=== PATIENT | female | born 1975 | race Caucasian/White ===

== ENCOUNTER 2018-01-23 08:50 | Inpatient (IN) ==
--- OUTSIDE RECORDS SUMMARY | 2018-01-23 09:03 | External Medical Summary | Continuity of Care Document ---
:1975 Author Organization [facility] Address [address] [place], [place] [id number] Phone Allergies, Adverse Reactions, Alerts Substance Reaction Severity Status No Known Drug Allergies Unknown Active Medications Medication Instructions Dosage Effective Dates Status Comments (start - stop) (unknown take 1 tablet by oral - Active strength) route every day Problems Condition Effective Dates (start - stop) Clinical Status Follow-Up, Routine - Supervision of elderly multigravida, - third trimester 31 weeks gestation of - Supervision of elderly multigravida, - first trimester 12 weeks gestation of - Supervision of elderly multigravida, - second trimester 16 weeks gestation of - Supervision of elderly multigravida, - second trimester 20 weeks gestation of - Supervision of elderly multigravida, - second trimester 25 weeks gestation of - Supervision of elderly multigravida, - second trimester 20 weeks gestation of - Supervision of elderly multigravida, - third trimester 29 weeks gestation of - Supervision of elderly multigravida, - third trimester 33 weeks gestation of - Uterine Fibroids Active Active Procedures Procedure Date OB Visit No Charge Results Test Name Date and Time Measure Units Reference Range Abnormal Flag Comments Unknown Advance Directives Directive Yes / No Effective Date File Name Unknown Encounters Encounter Practice Location Reason(s) Diagnoses Date Provider Care Team Description For Visit Members Fior Wing Supervision Jared- Stoney Referring In Womens of elderly 4-201 [place]. 700 Provider: Health ABHIJIT, multigravida, 8 Medical [place] [address], third [place], [id number] Jimmy Stearns [id number], weeks 120, Medical gestation of [facility] tel: [place], Jimmy 120, [id number] [facility]. [place], tel:[phone]. [id number] tel:[phone] Fior Wing Supervision November-3 Stoney Referring In Womens of elderly 0-201 [place]. 700 Provider: Health ABHIJIT, multigravida, 8 Medical [place] [address], third [place], [id number] Jimmy Stearns , weeks 120, Medical gestation of [facility] tel: [place], Jimmy 120, [id number] [facility]. [place], tel:[phone]. [id number] tel:[phone] Fior Wing Supervision Stoney Referring In Womens of elderly 5-201 [place]. 700 Provider: bharath Marrufogravida, 8 Medical [place] [address], third [place], [id number] Jimmy Stearns [id number], weeks 120, Medical gestation of [facility] tel: [place], Jimmy 120, [id number] [facility]. [place], tel: [phone]. [id number] tel:[phone] Fior Wing Supervision Oct-1 Stoney Referring In Womens of elderly 7-201 [place]. 700 Provider: bharath Marrufogravida, 8 Medical [place] [address], second [place], [id number] Jimmy Stearns [id number], weeks 120, Medical gestation of [facility] tel: [place], Jimmy 120, [id number] [facility]. [place], tel: [phone]. [id number] tel:[phone] Fior Wing Supervision Stoney Referring In Womens of elderly 5-201 [place]. 700 Provider: Health ABHIJIT multigravida, 8 Medical [place] [address], second [place], [id number] Jimmy Stearns [id number], weeks 120, Medical gestation of [facility] tel: [place], Jimmy 120, [address] [id number] [facility] , . [place], tel: [phone]. [id number] tel:[phone] Fior Wing Supervision Sep- Stoney Referring In Womens Ultrasound of elderly 5-201 [place]. 700 Provider: bharath Marrufogravida, 8 Medical [place] [address], second [place], [id number] Jimmy Stearns [id number], weeks 120, Medical US gestation of [facility] tel: [place], Jimmy 120, [address] [phone] [facility] , . [place], tel:[phone]. [id number] tel:[phone] Fior Wing Supervision Stoney Referring In Womens of elderly 5-201 [place]. 700 Provider: homero Marrufoavialesha, 8 Medical [place] [address], second [place], [id number] Jimmy Stearns [id number], weeks 120, Medical gestation of [facility] tel: [place], Jimmy 120, [id number] [facility]. [place], tel: [phone]. [id number] tel:[phone] Fior Wing Supervision Stoney Referring In Womens of elderly 8-201 [place]. 700 Provider: bharath Marrufogravida, 8 Medical [place] [address], first [place], [id number] Jimmy Stearns [id number], weeks 120, Medical US gestation of [facility] tel: [place], Jimmy 120, [id number] [facility]. [place], tel: [phone]. [id number] tel:[phone] Fior Wing Nick-0 Stoney In Womens Follow-Up, 7-201 [place]. 700 Health [place], Routine 6 Medical [address], [place] ANMOL Siddiqui, , Jimmy [id number], 120, Wing, tel:+21 [place], [phone] [id number] , . tel: [phone] Fior Wing Oct-2 Stoney Referring In Womens 0-201 [place]. 700 Provider: Health ABHIJIT, 5 Medical [place] [address], [place], , Jimmy [facility] , 120, Medical [facility] tel:+21 [place], Jimmy 120, [id number] [facility]. [place], tel: [phone]. [id number] tel:[phone] Fior Wing Oct-0 Stoney Referring In Womens 6-201 [place]. 700 Provider: Health ABHIJIT, 5 Medical [place] [address], [place], Dr, [place] [id number] , 120, [facility] tel: [place], Jimmy 120, [address] [phone] [facility] [place], tel: [phone]. [id number] tel:[phone] Fior Wing Yo-1 Stoney In Womens 0-201 [place]. 700 Health ABHIJIT, 3 Medical [address], [place] ANMOL Siddiqui, , [facility] , 120, Maciej, tel:+21 [place], [address] [phone] , . tel: [phone] Fior Wing Apr-1 Stoney In Womens 8-201 [place]. 700 Health PA, 3 Medical [address], [place] ANMOL Siddiqui, , Jimmy [id number], 120, Maciej, tel:+21 [place], [address] [phone] , . tel: [phone] Family History Family Member Diagnosis Age At Onset No family history of Kidney Problems Maternal Grandmother Diabetes mellitus No family history of Breast Cancer No family history of Cardiovascular Disease No family history of Hypertension No family history of Ovarian Cancer No family history of Thyroid Disorder No family history of Colon Cancer No family history of Lung Disease No family history of Osteoporosis Paternal Grandfather Stroke No family history of Epilepsy Immunizations Vaccine Date Status Comments Tdap completed Source: New Immunization Record Influenza, seasonal, injectable, completed Source: New Immunization Record preservative free, 3 yrs or older Payers Payer name Insurance type Covered green party ID Authorization(s) [facility] Aid CI [id number] [facility] CI [id number] [facility] CI [id number] Social History Type Description Quantity Date Captured Alcohol Use Details No Caffeine Use Details Unknown Tobacco Use Status Unknown Smoking Status Never smoker Vital Signs Date / Height Weight BMI Pulse Blood Temperature Respiratory Body Head BMI Time: Rate Pressure Rate Surface Circumference percentile Area 211.10 36.2 / lbs 3 mm[Hg] 9:24 kg/m AM amarjit (2) Chief Complaint And Reason For Visit Unknown Chief Complaint And Reason For Visit Reason For Referral Reason For Referral Unknown Plan Of Care Date Type Action Status Appointment Melissa Olmstead BOOKED Appointment Melissa Olmstead BOOKED Future Order: Lab Order Pap Smear With HPV Reflex If ASCUS Ordered ([id number]), Collected on: Date Type Problem Goal Intervention Status Start Date Unknown. History Of Present Illness Encounter Date Complaint History Of Present Illness This patient has no known history of present illness Functional Status Encounter Date Functional Assessment Cognitive Assessment Unknown Medications Administered Medication Instructions Dosage Effective Dates (start - stop) Status Comments Drug Treatment Unknown Instructions Date Instruction Additional Information Unknown
--- OUTSIDE RECORDS SUMMARY | 2018-01-23 09:03 | External Medical Summary | Continuity of Care Document ---
:1975 Author Organization [facility] Address [address] [place], [place] [id number] Phone Allergies, Adverse Reactions, Alerts Substance Reaction Severity Status No Known Drug Allergies Unknown Active Medications Medication Instructions Dosage Effective Dates Status Comments (start - stop) (unknown take 1 tablet by oral - Active strength) route every day Problems Condition Effective Dates (start - stop) Clinical Status Follow-Up, Routine - Supervision of elderly multigravida, - second trimester 25 weeks gestation of - Supervision of elderly multigravida, - first trimester 12 weeks gestation of - Supervision of elderly multigravida, - second trimester 16 weeks gestation of - Supervision of elderly multigravida, - second trimester 20 weeks gestation of - Supervision of elderly multigravida, - second trimester 20 weeks gestation of - Uterine Fibroids Active Active Procedures Procedure Date OB Visit No Charge Results Test Name Date and Time Measure Units Reference Range Abnormal Flag Comments Unknown Advance Directives Directive Yes / No Effective Date File Name Unknown Encounters Encounter Practice Location Reason(s) Diagnoses Date Provider Care Team Description For Visit Members Associates Maciej Supervision Stoney Referring In Womens of elderly 7-201 [place]. 700 Provider: sheila Marrufo, 8 [facility] [address], [facility] [place], [id number] Jimmy Stearns 700 [id number], weeks 120, Medical US gestation of [facility] tel: [place], Jimmy 120, [address] [id number] [facility]. [place], tel: [phone]. [id number] tel:[phone] Fior Wing Supervision Stoney Referring In Womens of elderly [place]. 700 Provider: bharath Marrufogravida, 8 Medical [place] [address], second [place], [id number] Jimmy Stearns [id number], weeks 120, Medical US gestation of [address] tel: [place], Jimmy 120, [address] [id number] [facility]. [place], tel: [phone]. [id number] tel:[phone] Fior Wing Supervision Stoney Referring In Womens Ultrasound of elderly [place]. 700 Provider: bharath Marrufogravialesha, 8 Medical [place] [address], second [place], [id number] Jimmy Stearns [id number], weeks 120, Medical US gestation of [address] tel: [place], Jimmy 120, [address] [id number] [facility]. [place], tel: [phone]. [id number] tel:[phone] Fior Wing Supervision Stoney Referring In Womens of elderly [place]. 700 Provider: homero Marrufoavialesha, 8 Medical [place] [address], second [place], [id number] Jimmy Stearns [id number], weeks 120, Medical US gestation of [address] tel: [place], Jimmy 120, [address] [id number] [facility]. [place], tel: [phone]. [id number] tel:[phone] Fior Wing Supervision Stoney Referring In Womens of elderly - [place]. 700 Provider: bharath Marrufogravida, 8 Medical [place] [address], first Center [place], [id number] Jimmy Stearns [id number], weeks 120, Medical US gestation of [address] tel: [place], Jimmy 120, [address] [id number] Wing, [facility]. [place], tel: [phone]. [id number] tel:[phone] Fior Wing Nick-0 Stoney In Womens Follow-Up, 7-201 [place]. 700 Health PA, Routine 6 Medical [address], [place] ANMOL Siddiqui, , Jimmy [id number], 120, Wing, tel:+21 [place], [address] [phone] , . tel: [phone] Fior Wing Oct-2 Stoney Referring In Womens 0-201 [place]. 700 Provider: Health ABHIJIT, 5 Medical [place] [address], [place] St[place], , Jimmy 700 [id number], 120, [facility] tel:+21 [place], Jimmy 120, 236[address] [id number] [facility]. [place], tel: [phone]. [id number] tel:[phone] Fior Wing Oct-0 Stoney Referring In Womens 6-201 [place]. 700 Provider: Health ABHIJIT, 5 Medical [place] [address], [place], , Jimmy 700 , 120, [facility] tel:+21 [place], Jimmy 120, [address] [id number] [facility]. [place], tel: [phone]. [id number] tel:[phone] Fior Wing Yo-1 Stoney In Womens 0-201 [place]. 700 Health ABHIJIT, 3 Medical [address], [place] ANMOL Siddiqui, , Jimmy [id number], 120, Wing, tel:+21 [place], [address] [phone] , [place]. tel: [phone] Fior Wing Apr-1 Stoney In Womens 8-201 [place]. 700 Health PA, 3 Medical [address], [place] ANMOL Siddiqui, , Jimmy [id number], 120, [place] Maciej, tel:+21 [place], [address] [id number] , . tel:[phone] Family History Family Member Diagnosis Age At [...] older Payers Payer name Insurance type Covered republican ID Authorization(s) [facility] Aid CI [id number] [facility] CI [id number] [facility] CI [id number] Social History Type Description Quantity Date Captured Alcohol Use Details No Caffeine Use Details Unknown Tobacco Use Status Unknown Smoking Status Never smoker Vital Signs Date / Height Weight BMI Pulse Blood Temperature Respiratory Body Head BMI Time: Rate Pressure Rate Surface Circumference percentile Area 203.70 34.9 124/70 2018 lbs 6 mm[Hg] 10:08 kg/m AM eter (2) Chief Complaint And Reason For Visit Unknown Chief Complaint And Reason For Visit Reason For Referral Reason For Referral Unknown Plan Of Care Date Type Action Status Appointment Anthony Olmstead BOOKED Future Order: Lab Order Pap [...]
--- OUTSIDE RECORDS SUMMARY | 2018-01-23 09:03 | External Medical Summary | Continuity of Care Document ---
:1975 Author Organization [facility] Address [address] [place], [place] [id number] Phone Allergies, Adverse Reactions, Alerts Substance Reaction [...] Uterine Fibroids Active Active Procedures Procedure Date Detailed Compled OB Ultrasound, Single Fetus Results Test Name Date and Time Measure Units Reference Range Abnormal Flag Comments Panel Description: OB Detailed Complete Ultrasound Document Pap Smear 08:15:00 See scanned report Advance Directives Directive Yes / No Effective Date File Name Unknown Encounters Encounter Practice Location Reason(s) Diagnoses Date Provider Care Team Description For Visit Members Associates Maciej Supervision Stoney Referring In Womens of elderly 5-201 [place]. 700 Provider: sheila Marrufo, 8 [facility] [address], [place], [id number] Jimmy Stearns 700 [id number], weeks 120, Medical US gestation of [facility] tel:+ [place], Jimmy 120, [address] [id number] [place], , . [place], tel: [phone]. [id number] tel:[phone] Fior Wing Supervision Stoney Referring In Womens Ultrasound of elderly 5- [place]. 700 Provider: Dilia LACEY, multigravida, 8 Medical [place] [address], second Center Stoney [place], [place], [id number] , Jimmy 700 [id number], weeks 120, Medical US gestation of [address] tel: [place], Jimmy 120, [address] [id number] Wing, , . [place], tel:[phone]. [id number] tel:[phone] Fior Wing Supervision Stoney Referring In Womens of elderly - [place]. 700 Provider: Dilia LACEY, multigravida, 8 Medical [place] [address], second Center Stoney [place], [place], , Jimmy Estee [id number], weeks 120, Medical US gestation of Maciej [place] tel: [place], Jimmy 120, [address] [id number] [place], , . [place], tel: [phone]. [id number] tel:[phone] Fior Wing Supervision Stoney Referring In Womens of elderly - [place]. 700 Provider: Dilia LACEY, multigravida, 8 Medical [place] [address], first [place], [id number] , Jimmy 700 [id number], weeks 120, Medical US gestation of [address] tel: [place], Jimmy 120, [address] [id number] Wing, , . [place], tel: [phone]. [id number] tel:[phone] Fior Wing Jul-0 Stoney In Womens Follow-Up, [place]. 700 Health ABHIJIT, Routine 6 Medical [address], Center [place], [place], Jimmy Stearns [id number], 120, [place] Mac[place], [place]: [place], [address] [id number] , . tel: [phone] Fior Wing Oct-2 Stoney Referring In Womens 0-201 [place]. 700 Provider: Health ABHIJIT, 5 Medical [place] [address], [place], , [facility] 700 [id number], 120, [facility] tel:[phone] [place], Jimmy 120, [address] [id number] Wing, [facility]. [place], tel: [phone]. [phone] tel:[phone] Fior Wing Oct-0 Stoney Referring In Womens 6-201 [place]. 700 Provider: Health ABHIJIT, 5 Medical [place] [address], [place], , [facility] 700 [id number], 120, Medical Maciej [place] tel:+21 [place], Jimmy 120, [address] [phone] Wing, [facility]. [place], tel: [phone]. [id number] tel:[phone] Fior Wing Yo-1 [place]oney In Womens 0-201 [place]. 700 Health ABHIJIT, 3 Medical [address], Center ANMOL Siddiqui, , [facility] [id number], 120, Wing, tel:+21 [place], [address] [phone] , . tel: [phone] Fior Wing Apr-1 Stoney In Womens 8-201 [place]. 700 Health ABHIJIT, 3 Medical [address], Center ANMOL Siddiqui, , [facility] [id number], 120, Maciej, tel:[phone] [place], [address] [phone] , . tel: [phone] Family History Family Member Diagnosis Age At [...] older Payers Payer name Insurance type Covered alliance party ID Authorization(s) [facility] [id number] [facility] Aid CI [id number] [facility] Aid CI [id number] Social History Type Description Quantity Date Captured Unknown Vital Signs Date / Height Weight BMI Pulse Blood Temperature Respiratory Body Head BMI Time: Rate Pressure Rate Surface Circumference percentile Area Unknown Chief Complaint And Reason For Visit Unknown Chief Complaint And Reason For Visit Reason For Referral Reason For Referral Unknown Plan Of Care Date Type Action Status Appointment Melissa Olmstead BOOKED Future Order: Lab [...]
--- OUTSIDE RECORDS SUMMARY | 2018-01-23 09:03 | External Medical Summary | Continuity of Care Document ---
:1975 Author Organization [facility] Address [address] [place], [place] [id number] Phone Allergies, Adverse Reactions, Alerts Substance Reaction Severity Status No Known Drug Allergies Unknown Active Medications Medication Instructions Dosage Effective Dates Status Comments (start - stop) (unknown take 1 tablet by oral - Active strength) route every day Problems Condition Effective Dates (start - stop) Clinical Status Follow-Up, Routine - Supervision of elderly multigravida, - third trimester 33 weeks gestation of - Supervision of elderly [...] Supervision of elderly multigravida, - third trimester 35 weeks gestation of - Supervision of elderly multigravida, - third trimester 29 weeks gestation of - Supervision of elderly multigravida, - third trimester 31 weeks gestation of - Supervision of elderly multigravida, - third trimester 35 weeks gestation of - Uterine Fibroids Active Active Procedures Procedure Date OB Visit No Charge Results Test Name Date and Time Measure Units Reference Range Abnormal Flag Comments Unknown Advance Directives Directive Yes / No Effective Date File Name Unknown Encounters Encounter Practice Location Reason(s) Diagnoses Date Provider Care Team Description For Visit Members Fior Wing Supervision [place]oney Referring In Womens of elderly 8-[address] [place]. 700 Provider: bharath Marrufogravida, 8 Medical Jey [address], third [place], [id number] Jimmy Stearns [id number], weeks 120, Medical US gestation of [facility] tel: [place], [place] 120, [id number] [id number] [facility]. [place], tel: [phone]. [id number] tel:[phone] Fior Wing Supervision [place]oney Referring In Womens Ultrasound of elderly 8-[address] [place]. 700 Provider: bhaarth Marrufogravialesha, 8 Medical Jey [address], third [place], [id number] Jimym Stearns [id number], weeks 120, Medical US gestation of [facility] tel: [place], [place] 120, [phone] [phone] [facility]. [place], tel: [phone]. [id number] tel:[phone] Fior Wing Supervision [place] Referring In Womens of elderly 4-[address] [place]. 700 Provider: homero Marrufoavialesha, 8 Medical Jey [address], third [place], [id number] Jimmy Stearns [id number], weeks 120, Medical [place] gestation of [facility] tel: [place], [place] 120, [phone] [phone] [facility]. [place], tel: [phone]. [id number] tel:[phone] Fior Wing Supervision 3 [place]oney Referring In Womens of elderly 0-[address] [place]. 700 Provider: bharath Marrufogravida, 8 Medical Jey [address], third [place], [id number] Jimmy Stearns [id number], weeks 120, Medical US gestation of [facility] tel: [place], [place] 120, [address] [id number] [facility]. [place], tel: [phone]. [id number] tel:[phone] Fior [place] Supervision [place] Referring In Womens of elderly [place]. 700 Provider: Dilia LACEY multigravida, 8 Medical [place] [address], third [place], [id number] Jimmy Stearns [id number], weeks 120, Medical US gestation of Maciej [place]: [place], [place] 120, [id number] [phone] [facility]. [place], tel: [phone]. [id number] tel:[phone] [facility] Supervision [place] Referring In Womens of elderly [place]. 700 Provider: bharath Marrufogravialesha, 8 Medical [place] [address], second [place], [id number] Jimmy Stearns , weeks 120, Medical US gestation of [place] tel: [place], [place] 120, [id number] [phone] [facility]. [place], tel: [phone]. [id number] tel:[phone] Fior [place] Supervision [place] Referring In Womens of elderly [place]. 700 Provider: bharath Marrufogravida, 8 Medical [place] [address], second [place], [id number] Jimmy Stearns [id number], weeks 120, Medical US gestation of [place]: [place], Jimmy 120, [id number] [phone] [facility]. [place], tel: [phone]. [id number] tel:[phone] Fior Wing Supervision [place] Referring In Womens Ultrasound of elderly [place]. 700 Provider: bharath Marrufogravida, 8 Medical [place] [address], second [place], [id number] Jimmy Stearns [id number], weeks 120, Medical US gestation of [place] tel: [place], Jimmy 120, [phone] [facility]. [place], tel: [phone]. [phone] tel:[phone] Fior [facility] Supervision Aug- [place] Referring In Womens of elderly 5-201 [place]. 700 Provider: Dilia LACEY, multigravida, 8 Medical Jey [address], [place] [id number] , Jimmy 700 , weeks 120, Medical gestation of [place] tel: [place], [place] 120, [phone] [facility]. [place], tel: [phone]. [id number] tel:[phone] Fior [place] Supervision Nick-1 [place] Referring In Womens of elderly 8-201 [place]. 700 Provider: Dilia LACEY, multigravida, 8 Medical Jey [address], first [place], [id number] , [facility] 700 [id number], weeks 120, Medical gestation of [place] tel: [place], Jimmy 120, [phone] [facility]. [place], tel: [phone]. [id number] tel:[phone] Fior Wing Nick-0 [place] In Womens Follow-Up, 7-[address] [place]. 700 Dilia LACEY, Routine 6 Medical [address], Center ANMOL Siddiqui, , Jimmy [id number], 120, [place], tel: [place], [phone] , . tel: [phone] Fior Wing Oct-2 [place] Referring In Womens 0-201 [place]. 700 Provider: Dilia LACEY, 5 Medical Jey [address], Center [place], , Jimmy 700 [id number], 120, Medical [place] tel: [place], Jimmy 120, [address] [id number] [facility]. [place], tel: [phone]. [id number] tel:[phone] Fior Wing Oct-0 [place] Referring In Womens 6-[address] [place]. 700 Provider: Health PA, 5 Medical [place] [address], [place], ANMOL Siddiqui, , Jimmy 700 [id number], 120, Medical Maciej, [place] tel:+21 [place], [place] 120, [phone] [id number] [place], , . [place], tel: [phone]. [id number] tel:[phone] [facility] Yo-1 [place] In Womens 0-[address] [place]. 700 Health PA, 3 Medical [address], [place] ANMOL Siddiqui, , [facility] [id number], 120, [place], tel:+21 [place], [phone] , [place]. tel: [phone] [facility] Apr-1 [place] In Womens 8-[address] [place]. 700 Health PA, 3 Medical [address], [place] ANMOL Siddiqui, , [facility] [id number], 120, Maciej, tel:21 [place], [address] [phone] , . tel: [phone] Family History Family Member Diagnosis Age At [...] Insurance type Covered green party ID Authorization(s) [facility] [employer] [place] [id number] [facility] [place] [id number] [facility] [employer] [place] [id number] Social History Type Description Quantity Date Captured Alcohol Use Details No Caffeine Use Details Unknown Tobacco Use Status Unknown Smoking Status Never smoker Vital Signs Date / Height Weight BMI Pulse Blood Temperature Respiratory Body Head BMI Time: Rate Pressure Rate Surface Circumference percentile Area 210.70 36.1 -2018 lbs 6 9:40 kg/m AM eter (2) 70 36.1 110/72 -2018 lbs 6 mm[Hg] 9:42 kg/m AM eter (2) Chief Complaint And Reason For Visit Unknown Chief Complaint And Reason For Visit Reason For Referral Reason For Referral Unknown Plan Of Care Date Type Action Status Future Order: Lab Order Pap Smear With HPV Reflex If ASCUS Ordered ([id number]), Collected on: Future Order: Radiology Order Ultrasound OB Follow-up ([id number]) Ordered Date Type Problem Goal Intervention Status Start [...]
[2018-01-23] MEDS ORDERED: CARBOPROST 250 MCG/ML INJECTION IM PRN (09:19)
[2018-01-23] MEDS ORDERED: CALCIUM CARBONATE Chewable 500mg TABLET PO PRN (09:19)
[2018-01-23] MEDS ORDERED: MAG-AL + SIM ORAL LIQUID 30ml PO PRN (09:19)
[2018-01-23] MEDS ORDERED: LIDOCAINE 1% (10mg/ml) 2mL INJ PF SDV ID PRN (09:19)
[2018-01-23] MEDS ORDERED: ACETAMINOPHEN 500 MG TABLET PO PRN (09:19)
[2018-01-23] MEDS ORDERED: METHYLERGONOVINE 0.2 MG/ML INJECTION IM PRN (09:19)
[2018-01-23] MEDS: LR 1,000 ML IV PRN ×3 (09:35→13:13)
[2018-01-23] MEDS ORDERED: AMPICILLIN 2 GM in NS 100 ML IV ONE (09:45)
[2018-01-23] MEDS ORDERED: ONDANSETRON 4 MG/2 ML INJECTION IVP PRN (10:28)
[2018-01-23] MEDS ORDERED: DiphenhydrAMINE 50 MG/ML INJECTION IVP PRN (10:28)
[2018-01-23] MEDS ORDERED: ROPIVACAINE 1% 10MG/ML INJ 200 MG, SUFentanil 50 MCG in NS 100 ML EPI PRN (10:28)
[2018-01-23] MEDS ORDERED: NALOXONE 0.4 MG/ML INJECTION IVP PRN (10:28)
--- NOTE | 2018-01-23 10:31 | Anesthesia Preoperative Report ---
Anesthesia Epidural/Spinal Rec - Date and Time Date: 01/23/18 Preoperative Diagnosis: pre term labor 36 5/7 weeks Procedure: Labor Epidural Plan: Epidural - Vital Signs NPO since: 2200 /Para: G: P: Heart Rate: 153 - Medictaions & Allergies Inpatient Medications: Current Medications Acetaminophen (Tylenol) 500 - 1,000 mg PO Q4H PRN PRN Reason: Pain Al Hydroxide/Mg Hydroxide (Maalox Plus) 30 ml PO Q3H PRN PRN Reason: Indigestion Calcium Carbonate (Tums) 500 - 1,000 mg PO Q2H PRN PRN Reason: Indigestion Carboprost Tromethamine (Hemabate) 250 mcg IM O PRN PRN Reason: .Downtime Diphenhydramine HCl (Benadryl) 25 - 50 mg IVP Q3H PRN PRN Reason: Itching Ampicillin Sodium 1 gm/ Sodium (Chloride) 100 mls @ 200 mls/hr IV Q4H LYUBOV Lactated Ringer's (Lactated Ringers) 1,000 mls @ 999 mls/hr IV .Q1H1M PRN Ropivacaine 200 mg/ Sufentanil Citrate 50 mcg/ Sodium Chloride 121 mls @ 10 mls /hr EPI PRN PRN PRN Reason: Protocol Lidocaine HCl (Xylocaine-Mpf 1% Vial) 0.2 mg ID O PRN PRN Reason: IV Start Methylergonovine Maleate (Methergine) 0.2 mg IM O PRN Misoprostol (Cytotec) 800 mcg WA ONCE PRN Naloxone HCl (Narcan) 0.1 mg IVP Q2M PRN PRN Reason: Respiratory distress Ondansetron HCl (Zofran) 4 mg IVP Q6H PRN PRN Reason: Nausea &/or vomiting Allergies/Adverse Reactions: Allergies Allergy/AdvReac Type Severity Reaction Status Date / Time NKDA Allergy Uncoded 05/03/13 10:28 - Home Medications Home Medications: Home Medications Medication Instructions Recorded Confirmed Type Pnv No.95/Ferrous Fum/Folic AC 1 each PO DAILY 01/23/18 01/23/18 History [ Tablet] - Medical History Gastrointestional: Reports: Gastroesophageal Reflux Disease, Morbid Obesity - Surgical History Anesthesia Reactions: None Hx Family Anesthesia Reaction: No History of Motion Sickness: No - Social History Smoking Status: Never smoker Second Hand Exposure: No Substance Use Type: does not use Alcohol Intake Frequency: does not drink Hx Chewing Tobacco Use: No - Pertinent Findings Lab Data: CBC and BMP 01/23/18 09:36 - Physical Exam Respiratory Exam: lungs clear, bilateral breath sounds equal Cardiovascular Exam: regular rate and rhythm - Airway Assessment Mallampati Score: I TMD: 3 Fingerbreadths Neck Extension: good Overall Assessment: no airway concerns - ASA ASA Score: 2 - Discussion Discussion: Discussed risks/options/alternatives of anesthesia and questions answered. Patient consents. Nursing pain assessment noted. Anesthesia Discussion: spouse Attestation Statement: Prior to the delivery of any anesthetic medication, I examined the patient, developed the plan, obtained the patient's consent and discussed the risk and benefits of the procedure with the patient/guardian.
[2018-01-23 10:34] VITALS: BMI 79.0
[2018-01-23] MEDS ORDERED: HYDROCORTISONE 2.5% CREAM 30gm RECTALLY PRN (13:46)
[2018-01-23] MEDS ORDERED: HYDROCODONE/APAP 5mg/325mg TABLET PO PRN (13:46)
[2018-01-23] MEDS ORDERED: TETANUS, DIPHTHERIA, a PERTUSSIS (Tdap) 0.5ml INJECTION IM ONE (13:46)
[2018-01-23] MEDS ORDERED: DiphenhydrAMINE 25 MG CAPSULE PO PRN (13:46)
[2018-01-23] MEDS ORDERED: OXYTOCIN DRIP 30 UNIT/500 ML ML IV SCH (14:00)
[2018-01-23] MEDS ORDERED: AMPICILLIN 1 GM in NS 100 ML IV SCH (14:00)
--- NOTE | 2018-01-23 15:20 | Anesthesia Postoperative Note ---
- Date and Time Date: 01/23/18 Time: 15:15 - Status Patient Participated in Evaluation: Patient Participated in Person Vital Signs: Temperature 97.7 F 01/23/18 10:27 Pulse Rate 83 01/23/18 10:27 Respiratory Rate 20 01/23/18 10:27 Blood Pressure 125/79 01/23/18 10:27 Pulse Oximetry 95 01/23/18 14:06 Respiratory Function: Airway Patent, Regular Respirations Cardiovascular Function: Regular Pulse Mental Status: Alert and Oriented Pain Intensity: 0 Hydration: Taking PO Fluids Complications During Recover: None Apparent Post Anesthesia Care Notes: moves lower extremeties - Follow-Up Instructions Instructions: Per Surgeon
[2018-01-23] MEDS: IBUPROFEN 800 MG TABLET PO PRN (20:05)
[2018-01-24 00:01] VITALS: RESP 16
[2018-01-24] MEDS: IBUPROFEN 800 MG TABLET PO PRN (05:26)
[2018-01-24 06:17] VITALS: O2SAT 98
--- NOTE | 2018-01-24 08:02 | OB/GYN Progress Note ---
OB-PP Progress Note - General PPD1 - Subjective Date: 01/24/18 Lochia: Minimal Pain: controlled (Ibuprofen working well. ) Voiding: voiding Nausea or Vomiting Present: No - Objective Vital Signs: Last Vital Signs Temp 97.8 F 01/24/18 05:50 Pulse 73 01/24/18 05:50 Resp 16 01/24/18 05:50 BP 118/69 01/24/18 05:50 Pulse Ox 98 01/24/18 05:50 Urine Output: good General: alert and oriented Abdomen: fundus firm Extremities: non-tender Laboratory: Laboratory Results - last 24 hr 01/23/18 09:36 WBC 15.8 H RBC 4.41 Hgb 13.5 Hct 41.3 MCV 93.7 MCH 30.6 MCHC 32.7 RDW Std Deviation 48.8 Plt Count 288 MPV 10.8 - Assessment Assessment: - Plan Plan: routine care, discharge home (Desires to dismissal. )
[2018-01-24] MEDS ORDERED: DOCUSATE CALCIUM 240 MG CAPSULE PO SCH (09:00)
--- NOTE | 2018-01-24 09:52 | Labor and Delivery Note ---
DATE 01/23/2018 Melissa is a 42-year-old 3, para 2 at 36 weeks 5 days gestational age who presented to Maternal/Child with spontaneous rupture of membranes. Her membranes ruptured approximately 12 hours prior to arrival. She was started on ampicillin for her unknown group B strep status. Her GBS finally resulted out as negative just prior to delivery. When she didn't change her cervix past 4 cm , she was started on Pitocin augmentation. She received an epidural. She had intermittent late decelerations throughout the day that resolved with repositioning and scalp stim. She finally had a spontaneous vaginal delivery of a viable male infant, Apgars 8/9, weight 2962 grams, name "Lionel". Baby was vigorous at delivery so he was placed on mom's abdomen. He had a short umbilical cord. This was clamped and cut at approximately 4 minutes of age. The placenta delivered spontaneously. She had a second-degree laceration at the site of her previous lacerations. Mom and baby tolerated the delivery well. MTDD
[2018-01-24 14:27] VITALS: BP 121/67; PULSE 75; TEMP 97.6
== END 2018-01-24 13:25 | disposition home or self-care (01) | DRG 775 ==
LOC: OBOBS 08:50 → MC 08:50
PROVIDERS: ADMIT Obstetrics & Gynecology; ATTEND Obstetrics & Gynecology